=== PATIENT | male | born 1940 | race Caucasian/White ===

== ENCOUNTER 2020-03-21 16:59 | Inpatient (IN) | payer MEDICARE, OTHER ==
[~2020-03-21] VITALS: Ht 175.3 cm; Wt 86.3 kg
[2020-03-21] MEDS ORDERED: ONDANSETRON 4 MG/2 ML (SDV) Z0FRAN IV PRN (17:15)
[2020-03-21] MEDS ORDERED: ACETAMINOPHEN 325 MG TABLET PO PRN (17:15)
[2020-03-21] MEDS ORDERED: guaiFENesin/CODEINE (ROBITUSSIN AC) 10ML UDC PO PRN (17:15)
--- NOTE | 2020-03-21 18:40 | NUR ---
ALEXYS ESTRADA admitted to room 425-1, with an admitting diagnosis of COVID POSITIVE, on 03/21/20 from via [facility], accompanied by EMS STAFF FROM [facility].ALEXYS ESTRADA introduced to surroundings, call light, bed controls, phone, TV, temperature control, lights, meal times, smoking policy, visitor policy, side rail policy, bathrooms and showers. Patient Rights given to patient in the handbook. ALEXYS ESTRADA verbalizes understanding that [facility] is not responsible for the loss or damage to any personal effects or valuables that are kept in the patients posession during their hospitalization.
[2020-03-21 18:41] VITALS: BP 166/96
[2020-03-21] MEDS ORDERED: LACTATED RINGERS 1,000 ML IV ONE (19:57)
[2020-03-21] MEDS ORDERED: ENOXAPARIN 40 MG/0.4 ML (LOVENOX) SYR ONE (20:01)
[2020-03-21] MEDS: LACTATED RINGERS 1,000 ML IV SCH (20:30)
[2020-03-21 22:54] LABS: ABG BASE EXCESS 3.8 MMOL/L (-2.5-2.5); ABG OXYGEN SATURATION 95 % (94-100); ABG PCO2 37 MMHG (35-45); ABG PH 7.48 (7.37-7.43); ABG PO2 75 MMHG (79-93); ABG TCO2 28.6 MMOL/L (21.0-31.0); ALLENS TEST POSITIVE
[2020-03-21 22:55] LABS: INSPIRED O2 4.5; PATIENT TEMP 35.8; VENTILATOR NO
[2020-03-22] VITALS (9 sets, daily range): BP systolic 124–154; BP diastolic 69–95
[2020-03-22 05:06] LABS: HEMOGLOBIN 14.1 g/dL (13.3-17.7); MEAN PLATELET VOLUME 9.2 fL (9.0-12.2); WHITE BLOOD COUNT 12.5 10^3/uL (4.3-11.0)
[2020-03-22 05:22] LABS: ALBUMIN 3.2 GM/DL (3.2-4.5)
[2020-03-22 05:23] LABS: CHLORIDE 91 MMOL/L (98-107); POTASSIUM 3.1 MMOL/L (3.6-5.0); SODIUM 130 MMOL/L (135-145)
[2020-03-22 05:24] LABS: CALCIUM 8.4 MG/DL (8.5-10.1)
[2020-03-22 05:25] LABS: GLUCOSE 167 MG/DL (70-105); TOTAL PROTEIN 5.7 GM/DL (6.4-8.2)
[2020-03-22 05:26] LABS: CARBON DIOXIDE 27 MMOL/L (21-32)
[2020-03-22 05:27] LABS: BILIRUBIN,TOTAL 0.7 MG/DL (0.1-1.0)
[2020-03-22 05:28] LABS: ALKALINE PHOSPHATASE 58 U/L (40-136)
[2020-03-22 05:29] LABS: GFR ESTIMATED > 60
[2020-03-22 05:30] LABS: BUN/CREATININE RATIO 19
[2020-03-22 05:32] LABS: ALANINE AMINOTRANSFERASE 43 U/L (0-55)
[2020-03-22] MEDS: LACTATED RINGERS 1,000 ML IV SCH ×2 (06:22→09:23)
[2020-03-22] MEDS: ENOXAPARIN 40 MG/0.4 ML (LOVENOX) SYR SC SCH (06:22)
[2020-03-22] MEDS: REMDESIVIR INJ 100 MG in NS (IVPB) 230 ML IV SCH (09:05)
[2020-03-22] MEDS: dexAMETHasone 6 MG TAB (DECADRON) PO SCH (09:07)
[2020-03-22] MEDS ORDERED: BRIM5DRO OU (12:35)
[2020-03-22] MEDS ORDERED: NETA2.5D OU (12:35)
[2020-03-22] MEDS ORDERED: FINA5TAB6 PO (12:35)
[2020-03-22] MEDS ORDERED: LISI1TAB26 PO (12:35)
[2020-03-22] MEDS ORDERED: OMEP20TA33 PO (12:36)
--- NOTE | 2020-03-22 12:37 | NUR ---
I SPOKE WITH THE PATIENT ON THE ROOM PHONE AND WENT THROUGH THE EXTERNAL MED HISTORY TO COMPLETE THE MED REC. OTC: SHELDON
[2020-03-22] MEDS ORDERED: KCL 20 MEQ TAB (K-DUR) PO ONE (12:45)
[2020-03-22] MEDS ORDERED: hydrALAZINE (APRESOLINE) 25 MG TAB PO PRN (12:45)
--- NOTE | 2020-03-22 12:51 | History & Physical-Hospitalist ---
History of Present Illness HPI/Chief Complaint Renan Le is an 79-year-old male with past medical history of hypertension, BPH, GERD, glaucoma, who presented with shortness of breath. He presented to the [facility] ER in [place]. He had been diagnosed with COVID about 10 days prior. He reports that he has had a issues with sinuses for about 8 months and they suddenly cleared up. He reports that he then developed chest congestion. He reports having a cough. He denies ever having any fevers. He denies any chest pain. He denies any abdominal pain. He denies any nausea or vomiting. He denies any diarrhea. He has no other complaints or concerns. Source: patient Exam Limitations: no limitations Date Seen 03/22/20 Time Seen by a Provider: 10:25 Attending Physician Nay Stack MD PCP Alec Butcher DO Referring Physician Date of Admission Mar 21, 2020 at 18:40 Home Medications & Allergies Home Medications Reviewed patient Home Medication Reconciliation performed by pharmacy medication reconciliations machine technician and/or nursing. Patients Allergies have been reviewed. Allergies Allergies Coded Allergies No Known Drug Allergies (Nobtkowzpu56/22/20) Past Eojcbat-Beyaby-Dhuoep Hx Past Med/Social Hx: Reviewed Nursing Past Med/Soc Hx Patient Social History Recent Foreign Travel: No Contact w/other who traveled: No Recent Hopitalizations: No Recent Infectious Disease Expo: Yes (covid pos) Immunizations Up To Date Date of Pneumonia Vaccine: Jan 28, 2018 Date of Influenza Vaccine: Jan 29, 2020 Seasonal Allergies Seasonal Allergies: No Past Medical History Gastrointestinal: Gastroesophageal Reflux HEENT: Macular Degeneration, Glaucoma Hearing Impairment: Hard of Hearing History of Blood Disorders: No Family History Patient reports no known family medical history. Review of Systems Constitutional: malaise, weakness EENTM: no symptoms reported Respiratory: cough, short of breath Cardiovascular: no symptoms reported Gastrointestinal: no symptoms reported Genitourinary: no symptoms reported Musculoskeletal: no symptoms reported Skin: no symptoms reported Psychiatric/Neurological: No Symptoms Reported Physical Exam Physical Exam Vital Signs Vital Signs - First Documented 03/20/20 20:30 Pulse Ox 92 O2 Delivery Nasal Cannula O2 Flow Rate 5.00 Capillary Refill : Less Than 3 Seconds Height, Weight, BMI Height: '" Weight: lbs. oz. kg; 28.27 BMI Method: General Appearance: No Apparent Distress, WD/WN Neck: Normal Inspection, Supple Respiratory: Lungs Clear, Normal Breath Sounds, No Respiratory Distress Cardiovascular: Regular Rate, Rhythm, No Edema, No Murmur Gastrointestinal: Normal Bowel Sounds, Non Tender, Soft Extremity: Normal Inspection, Non Tender, No Pedal Edema Neurologic/Psychiatric: Alert, Oriented x3, No Motor/Sensory Deficits, Normal Mood/Affect Skin: Normal Color, Warm/Dry Results Results/Procedures Labs Laboratory Tests 03/22/20 04:24 Patient resulted labs reviewed. Imaging: Reviewed Imaging Report Assessment/Plan Admission Diagnosis acute respiratory failure due to COVID-19 Admission Status: Inpatient Order (span 2 midnights) Reason for Inpatient Admission: Requiring supplemental oxygen Assessment and Plan Acute respiratory failure due to COVID-19 COVID+ at outside facility reportedly 03/12 Requiring 4-5 L nasal cannula D-dimer normal, low likelihood of PE Procalcitonin normal, antibiotics not indicated Decadron Remdesivir Convalescent plasma ordered, agrees to EUA use, risks/benefits discussed Hyponatremia Hypokalemia Na 130, K 3.1 Continue IV fluids Replace potassium today Check magnesium Monitor and replace electrolytes as needed HTN BPH GERD Glaucoma Continue home meds DVT Prophylaxis: Lovenox Diagnosis/Problems Diagnosis/Problems (1) Acute respiratory failure due to COVID-19 Status: Acute (2) Hyponatremia Status: Acute (3) Hypokalemia Status: Acute (4) HTN (hypertension) Status: Chronic Qualifiers: Hypertension type: essential hypertension Qualified Codes: I10 - Essential (primary) hypertension (5) BPH (benign prostatic hyperplasia) Status: Chronic (6) GERD (gastroesophageal reflux disease) Status: Chronic (7) Glaucoma Status: Chronic (8) Overweight (BMI 25.0-29.9) Status: Chronic (9) 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
[2020-03-22] MEDS: POTASSIUM CL 10MEQ/50ML IVPB 50 ML IV SCH ×4 (13:39→15:41)
[2020-03-22] MEDS ORDERED: RT-ALBUTEROL INHALER HFA (VENTOLIN HFA) 18 GM IH SCH (18:00)
[2020-03-22] MEDS ORDERED: NETARSUDIL MESYLATE OU SCH (21:00)
[2020-03-22] MEDS ORDERED: NON-FORMULARY MEDICATION 1 EA EA (Brimonidine Tartrate/Timolol (Combigan Eye Drops) 1 DROP OU SCH (21:00)
[2020-03-22] MEDS: TIMOLOL MALEATE 0.5% 5 ML (TIMOPTIC) BTL OU SCH (21:13)
[2020-03-22] MEDS: BRIMONIDINE 0.2% (ALPHAGAN) OPHTH SOLN 5 ML BTL OU SCH (21:13)
[2020-03-22] MEDS: RT-ALBUTEROL INHALER HFA (VENTOLIN HFA) 18 GM IH SCH (22:48)
[2020-03-23 00:11] VITALS: BP 133/90
[2020-03-23] MEDS: LACTATED RINGERS 1,000 ML IV SCH ×2 (02:03→15:05)
[2020-03-23] MEDS: RT-ALBUTEROL INHALER HFA (VENTOLIN HFA) 18 GM IH SCH ×6 (02:11→21:55)
[2020-03-23 04:22] VITALS: BP 144/87
[2020-03-23 06:05] LABS: HEMOGLOBIN 13.6 g/dL (13.3-17.7); MEAN PLATELET VOLUME 9.2 fL (9.0-12.2); WHITE BLOOD COUNT 16.1 10^3/uL (4.3-11.0)
[2020-03-23 06:15] LABS: ALBUMIN 3.3 GM/DL (3.2-4.5)
[2020-03-23 06:16] LABS: CHLORIDE 95 MMOL/L (98-107); POTASSIUM 3.4 MMOL/L (3.6-5.0); SODIUM 134 MMOL/L (135-145)
[2020-03-23 06:17] LABS: CALCIUM 8.5 MG/DL (8.5-10.1)
[2020-03-23 06:18] LABS: GLUCOSE 127 MG/DL (70-105); TOTAL PROTEIN 5.7 GM/DL (6.4-8.2)
[2020-03-23 06:19] LABS: CARBON DIOXIDE 29 MMOL/L (21-32)
[2020-03-23 06:20] LABS: BILIRUBIN,TOTAL 0.8 MG/DL (0.1-1.0)
[2020-03-23 06:21] LABS: ALKALINE PHOSPHATASE 65 U/L (40-136)
[2020-03-23 06:22] LABS: CREATININE SERUM 0.88 MG/DL (0.60-1.30); GFR ESTIMATED > 60
[2020-03-23 06:23] LABS: BUN/CREATININE RATIO 19
[2020-03-23 06:24] LABS: ALANINE AMINOTRANSFERASE 56 U/L (0-55)
[2020-03-23 06:25] LABS: MAGNESIUM 1.9 MG/DL (1.6-2.4)
[2020-03-23] MEDS: POTASSIUM CL 10MEQ/50ML IVPB 50 ML IV SCH (06:53)
[2020-03-23] MEDS: KCL 20 MEQ TAB (K-DUR) PO SCH (06:54)
[2020-03-23] MEDS: MAGNESIUM 1 GM/100 ML IVPB 100 ML IV SCH (06:54)
[2020-03-23 08:00] VITALS: BP 150/78
[2020-03-23] MEDS: REMDESIVIR INJ 100 MG in NS (IVPB) 230 ML IV SCH (08:06)
[2020-03-23] MEDS: ENOXAPARIN 40 MG/0.4 ML (LOVENOX) SYR SC SCH (08:15)
[2020-03-23] MEDS: dexAMETHasone 6 MG TAB (DECADRON) PO SCH (08:16)
[2020-03-23] MEDS: FINASTERIDE (PROSCAR) 5 MG TAB PO SCH (08:17)
[2020-03-23] MEDS: TIMOLOL MALEATE 0.5% 5 ML (TIMOPTIC) BTL OU SCH ×2 (08:18→19:51)
[2020-03-23] MEDS: BRIMONIDINE 0.2% (ALPHAGAN) OPHTH SOLN 5 ML BTL OU SCH ×3 (08:18→19:51)
[2020-03-23] MEDS ORDERED: KCL 20 MEQ TAB (K-DUR) PO NR (09:00)
[2020-03-23 12:00] VITALS: BP 136/56
[2020-03-23] MEDS ORDERED: PANTOPRAZOLE 20 MG TABLET (PROTONIX) PO PRN (13:00)
--- NOTE | 2020-03-23 15:29 | Progress Note - Hospitalist ---
Subjective HPI/CC On Admission Date Seen by Provider: Mar 23, 2020 Time Seen by Provider: 11:05 Renan Le is an 79-year-old male with past medical history of hypertension, BPH, GERD, glaucoma, who presented with shortness of breath. He presented to the [facility] ER in [place]. He had been diagnosed with COVID about 10 days prior. He reports that he has had a issues with sinuses for about 8 months and they suddenly cleared up. He reports that he then developed chest congestion. He reports having a cough. He denies ever having any fevers. He denies any chest pain. He denies any abdominal pain. He denies any nausea or vomiting. He denies any diarrhea. He has no other complaints or concerns. Subjective/Events-last exam He history feeling better. He is still feeling short of breath. He is still having a bit of a cough. He denies any fevers. He has no other complaints or concerns. Objective Exam Vital Signs Vital Signs Date Time Temp Pulse Resp B/P (MAP) Pulse Ox O2 Delivery O2 Flow Rate FiO2 03/23/20 15:17 96 Nasal Cannula 2.00 03/23/20 12:23 81 03/23/20 12:00 35.8 22 136/56 (82) Capillary Refill : Less Than 3 Seconds General Appearance: No Apparent Distress, WD/WN Respiratory: Lungs Clear, Normal Breath Sounds, No Respiratory Distress Cardiovascular: Regular Rate, Rhythm, No Edema, No Murmur Gastrointestinal: Normal Bowel Sounds, Non Tender, Soft Extremity: Normal Inspection, Non Tender, No Pedal Edema Neurologic/Psychiatric: Alert, Oriented x3, No Motor/Sensory Deficits, Normal Mood/Affect Skin: Normal Color, Warm/Dry Results/Procedures Lab Laboratory Tests 03/23/20 05:15 Patient resulted labs reviewed. Imaging: Reviewed Imaging Report Assessment/Plan Assessment and Plan Assess & Plan/Chief Complaint Acute respiratory failure due to COVID-19 supplemental oxygen as needed, weaning as able Decadron Remdesivir s/p 1 unit convalescent plasma Hyponatremia Hypokalemia Improving Monitor and replace electrolytes as needed HTN BPH GERD Glaucoma Continue home meds DVT Prophylaxis: Lovenox Diagnosis/Problems Diagnosis/Problems (1) Acute respiratory failure due to COVID-19 Status: Acute (2) Hyponatremia Status: Acute (3) Hypokalemia Status: Acute (4) HTN (hypertension) Status: Chronic Qualifiers: Hypertension type: essential hypertension Qualified Codes: I10 - Essential (primary) hypertension (5) BPH (benign prostatic hyperplasia) Status: Chronic (6) GERD (gastroesophageal reflux disease) Status: Chronic (7) Glaucoma Status: Chronic (8) Overweight (BMI 25.0-29.9) Status: Chronic (9) 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
[2020-03-23 16:00] VITALS: BP 144/87
[2020-03-23 19:41] VITALS: BP 145/80
[2020-03-24] VITALS (7 sets, daily range): BP systolic 142–159; BP diastolic 73–94
[2020-03-24] MEDS: RT-ALBUTEROL INHALER HFA (VENTOLIN HFA) 18 GM IH SCH ×5 (01:19→21:56)
[2020-03-24 06:07] LABS: HEMOGLOBIN 14.2 g/dL (13.3-17.7); MEAN PLATELET VOLUME 8.7 fL (9.0-12.2); WHITE BLOOD COUNT 15.4 10^3/uL (4.3-11.0)
[2020-03-24 06:24] LABS: ALANINE AMINOTRANSFERASE 74 U/L (0-55); ALBUMIN 3.4 GM/DL (3.2-4.5); ALKALINE PHOSPHATASE 82 U/L (40-136); BILIRUBIN,TOTAL 0.9 MG/DL (0.1-1.0); BUN/CREATININE RATIO 19; CALCIUM 9.2 MG/DL (8.5-10.1); CARBON DIOXIDE 26 MMOL/L (21-32); CHLORIDE 97 MMOL/L (98-107); CREATININE SERUM 0.85 MG/DL (0.60-1.30); GFR ESTIMATED > 60; GLUCOSE 102 MG/DL (70-105); MAGNESIUM 1.8 MG/DL (1.6-2.4); POTASSIUM 3.9 MMOL/L (3.6-5.0); SODIUM 134 MMOL/L (135-145)
[2020-03-24] MEDS: MAGNESIUM 1 GM/100 ML IVPB 100 ML IV SCH (06:36)
[2020-03-24] MEDS: KCL 20 MEQ TAB (K-DUR) PO SCH (06:37)
[2020-03-24] MEDS: POTASSIUM CL 10MEQ/50ML IVPB 50 ML IV SCH (06:37)
[2020-03-24] MEDS: dexAMETHasone 6 MG TAB (DECADRON) PO SCH (08:31)
[2020-03-24] MEDS: ENOXAPARIN 40 MG/0.4 ML (LOVENOX) SYR SC SCH (08:31)
[2020-03-24] MEDS: REMDESIVIR INJ 100 MG in NS (IVPB) 230 ML IV SCH (08:31)
[2020-03-24] MEDS: TIMOLOL MALEATE 0.5% 5 ML (TIMOPTIC) BTL OU SCH ×2 (08:32→20:59)
[2020-03-24] MEDS: BRIMONIDINE 0.2% (ALPHAGAN) OPHTH SOLN 5 ML BTL OU SCH ×3 (08:32→20:59)
[2020-03-24] MEDS: FINASTERIDE (PROSCAR) 5 MG TAB PO SCH (08:32)
[2020-03-24] MEDS: RT-ALBUTEROL INHALER HFA (VENTOLIN HFA) 18 GM IH PRN ×2 (10:00→21:56)
--- NOTE | 2020-03-24 14:02 | Progress Note - Hospitalist ---
Subjective HPI/CC On Admission Date Seen by Provider: Mar 24, 2020 Time Seen by Provider: 10:25 Renan Le is an 79-year-old male with past medical history of hypertension, BPH, GERD, glaucoma, who presented with shortness of breath. He presented to the [facility] ER in [place]. He had been diagnosed with COVID about 10 days prior. He reports that he has had a issues with sinuses for about 8 months and they suddenly cleared up. He reports that he then developed chest congestion. He reports having a cough. He denies ever having any fevers. He denies any chest pain. He denies any abdominal pain. He denies any nausea or vomiting. He denies any diarrhea. He has no other complaints or concerns. Subjective/Events-last exam He is feeling a bit better today. He did not sleep well last night. He is not having any fevers. Objective Exam Vital Signs Vital Signs Date Time Temp Pulse Resp B/P (MAP) Pulse Ox O2 Delivery O2 Flow Rate FiO2 03/24/20 11:25 37.0 74 22 145/84 (104) 94 Nasal Cannula 2.00 Capillary Refill : Less Than 3 Seconds General Appearance: No Apparent Distress, WD/WN Respiratory: Lungs Clear, Normal Breath Sounds, No Respiratory Distress Cardiovascular: Regular Rate, Rhythm, No Edema, No Murmur Gastrointestinal: Normal Bowel Sounds, Non Tender, Soft Extremity: Normal Inspection, Non Tender, No Pedal Edema Neurologic/Psychiatric: Alert, Oriented x3, No Motor/Sensory Deficits, Normal Mood/Affect Skin: Normal Color, Warm/Dry Results/Procedures Lab Laboratory Tests 03/24/20 05:55 Patient resulted labs reviewed. Imaging: Reviewed Imaging Report Assessment/Plan Assessment and Plan Assess & Plan/Chief Complaint Acute respiratory failure due to COVID-19 supplemental oxygen as needed, weaning as able, currently down to 3 L Decadron Remdesivir day 4/5 s/p 1 unit convalescent plasma Hyponatremia Hypokalemia Improved Monitor and replace electrolytes as needed HTN BPH GERD Glaucoma Continue home meds DVT Prophylaxis: Lovenox Diagnosis/Problems Diagnosis/Problems (1) Acute respiratory failure due to COVID-19 Status: Acute (2) Hyponatremia Status: Acute (3) Hypokalemia Status: Acute (4) HTN (hypertension) Status: Chronic Qualifiers: Hypertension type: essential hypertension Qualified Codes: I10 - Essential (primary) hypertension (5) BPH (benign prostatic hyperplasia) Status: Chronic (6) GERD (gastroesophageal reflux disease) Status: Chronic (7) Glaucoma Status: Chronic (8) Overweight (BMI 25.0-29.9) Status: Chronic (9) 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
[2020-03-24] MEDS: MELATONIN 3 MG TABLET PO SCH (20:59)
[2020-03-25] MEDS: RT-ALBUTEROL INHALER HFA (VENTOLIN HFA) 18 GM IH SCH ×4 (02:35→15:30)
[2020-03-25] MEDS: RT-ALBUTEROL INHALER HFA (VENTOLIN HFA) 18 GM IH PRN ×4 (02:35→22:47)
[2020-03-25 03:40] VITALS: BP 147/87
[2020-03-25 04:57] LABS: HEMOGLOBIN 13.9 g/dL (13.3-17.7); MEAN PLATELET VOLUME 8.9 fL (9.0-12.2); WHITE BLOOD COUNT 12.9 10^3/uL (4.3-11.0)
[2020-03-25 05:32] LABS: ALBUMIN 3.3 GM/DL (3.2-4.5)
[2020-03-25 05:33] LABS: CHLORIDE 97 MMOL/L (98-107); POTASSIUM 4.2 MMOL/L (3.6-5.0); SODIUM 134 MMOL/L (135-145)
[2020-03-25 05:34] LABS: CALCIUM 8.7 MG/DL (8.5-10.1)
[2020-03-25 05:35] LABS: GLUCOSE 109 MG/DL (70-105); TOTAL PROTEIN 5.9 GM/DL (6.4-8.2)
[2020-03-25 05:36] LABS: CARBON DIOXIDE 24 MMOL/L (21-32)
[2020-03-25 05:37] LABS: BILIRUBIN,TOTAL 0.9 MG/DL (0.1-1.0)
[2020-03-25 05:39] LABS: ALKALINE PHOSPHATASE 86 U/L (40-136); CREATININE SERUM 0.86 MG/DL (0.60-1.30); GFR ESTIMATED > 60
[2020-03-25] MEDS: KCL 20 MEQ TAB (K-DUR) PO SCH (05:39)
[2020-03-25] MEDS: POTASSIUM CL 10MEQ/50ML IVPB 50 ML IV SCH (05:39)
[2020-03-25 05:40] LABS: BUN/CREATININE RATIO 19
[2020-03-25 05:42] LABS: ALANINE AMINOTRANSFERASE 78 U/L (0-55)
[2020-03-25] MEDS: MAGNESIUM 1 GM/100 ML IVPB 100 ML IV SCH (06:51)
[2020-03-25 08:00] VITALS: BP 144/87
[2020-03-25] MEDS: TIMOLOL MALEATE 0.5% 5 ML (TIMOPTIC) BTL OU SCH ×2 (09:20→19:38)
[2020-03-25] MEDS: FINASTERIDE (PROSCAR) 5 MG TAB PO SCH (09:20)
[2020-03-25] MEDS: BRIMONIDINE 0.2% (ALPHAGAN) OPHTH SOLN 5 ML BTL OU SCH ×3 (09:20→19:38)
[2020-03-25] MEDS: ENOXAPARIN 40 MG/0.4 ML (LOVENOX) SYR SC SCH (09:21)
[2020-03-25] MEDS: REMDESIVIR INJ 100 MG in NS (IVPB) 230 ML IV SCH (09:21)
[2020-03-25] MEDS: dexAMETHasone 6 MG TAB (DECADRON) PO SCH (09:21)
[2020-03-25] MEDS ORDERED: polyethylene glycoL POWDER 17 GM (MIRALAX) PACK PO PRN (11:00)
[2020-03-25] MEDS: SENNA W/DOCUSATE (SENOKOT S) TABLET PO SCH ×2 (12:00→19:38)
--- NOTE | 2020-03-25 12:30 | NUR ---
patient needs 4L oxygen continuously Addendum: 03/25/20 at 1231 by CÉSAR CR RT Amended: Links added.
--- NOTE | 2020-03-25 12:57 | Progress Note - Hospitalist ---
Subjective HPI/CC On Admission Date Seen by Provider: Mar 25, 2020 Time Seen by Provider: 10:55 Renan Le is an 79-year-old male with past medical history of hypertension, BPH, GERD, glaucoma, who presented with shortness of breath. He presented to the [facility] ER in [place]. He had been diagnosed with COVID about 10 days prior. He reports that he has had a issues with sinuses for about 8 months and they suddenly cleared up. He reports that he then developed chest congestion. He reports having a cough. He denies ever having any fevers. He denies any chest pain. He denies any abdominal pain. He denies any nausea or vomiting. He denies any diarrhea. He has no other complaints or concerns. Subjective/Events-last exam He slept better last night. He needs medication for constipation. He denies any fevers. He has no other complaints. Objective Exam Vital Signs Vital Signs Date Time Temp Pulse Resp B/P (MAP) Pulse Ox O2 Delivery O2 Flow Rate FiO2 03/25/20 11:35 95 4.00 03/25/20 09:04 Nasal Cannula 03/25/20 08:00 36.9 85 18 144/87 (106) Capillary Refill : Less Than 3 Seconds General Appearance: No Apparent Distress, WD/WN Respiratory: Lungs Clear, Normal Breath Sounds, No Respiratory Distress Cardiovascular: Regular Rate, Rhythm, No Edema, No Murmur Gastrointestinal: Normal Bowel Sounds, Non Tender, Soft Extremity: Normal Inspection, Non Tender, No Pedal Edema Neurologic/Psychiatric: Alert, Oriented x3, No Motor/Sensory Deficits, Normal Mood/Affect Skin: Normal Color, Warm/Dry Results/Procedures Lab Laboratory Tests 03/25/20 04:22 Patient resulted labs reviewed. Imaging: Reviewed Imaging Report Assessment/Plan Assessment and Plan Assess & Plan/Chief Complaint Acute respiratory failure due to COVID-19 supplemental oxygen as needed Decadron Remdesivir day 5/5 s/p 1 unit convalescent plasma Hyponatremia Improved HTN BPH GERD Glaucoma Continue home meds DVT Prophylaxis: Lovenox Hypokalemia, resolved Diagnosis/Problems Diagnosis/Problems (1) Acute respiratory failure due to COVID-19 Status: Acute (2) Hyponatremia Status: Acute (3) Hypokalemia Status: Resolved Resolution Date/Time: 03/25/20 @ 12:58 (4) HTN (hypertension) Status: Chronic Qualifiers: Hypertension type: essential hypertension Qualified Codes: I10 - Essential (primary) hypertension (5) BPH (benign prostatic hyperplasia) Status: Chronic (6) GERD (gastroesophageal reflux disease) Status: Chronic (7) Glaucoma Status: Chronic (8) Overweight (BMI 25.0-29.9) Status: Chronic (9) 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
[2020-03-25 16:21] VITALS: BP 164/83
[2020-03-25] MEDS: DOCUSATE SODIUM 100 MG (COLACE) CAP PO SCH (19:38)
[2020-03-25] MEDS: MELATONIN 3 MG TABLET PO SCH (19:38)
[2020-03-25 23:48] VITALS: BP 149/86
[2020-03-26] MEDS: RT-ALBUTEROL INHALER HFA (VENTOLIN HFA) 18 GM IH PRN ×2 (02:26→10:39)
[2020-03-26 06:17] LABS: ALBUMIN 3.1 GM/DL (3.2-4.5); CHLORIDE 96 MMOL/L (98-107); SODIUM 133 MMOL/L (135-145)
[2020-03-26 06:18] LABS: CALCIUM 8.7 MG/DL (8.5-10.1)
[2020-03-26] MEDS: POTASSIUM CL 10MEQ/50ML IVPB 50 ML IV SCH (06:18)
[2020-03-26] MEDS: KCL 20 MEQ TAB (K-DUR) PO SCH (06:18)
[2020-03-26 06:19] LABS: GLUCOSE 139 MG/DL (70-105); TOTAL PROTEIN 5.8 GM/DL (6.4-8.2)
[2020-03-26 06:20] LABS: CARBON DIOXIDE 27 MMOL/L (21-32)
[2020-03-26 06:21] LABS: BILIRUBIN,TOTAL 0.8 MG/DL (0.1-1.0)
[2020-03-26 06:23] LABS: ALKALINE PHOSPHATASE 83 U/L (40-136); CREATININE SERUM 0.86 MG/DL (0.60-1.30); GFR ESTIMATED > 60
[2020-03-26 06:24] LABS: BUN/CREATININE RATIO 21
[2020-03-26 06:26] LABS: ALANINE AMINOTRANSFERASE 79 U/L (0-55)
[2020-03-26] MEDS: MAGNESIUM 1 GM/100 ML IVPB 100 ML IV SCH (06:27)
[2020-03-26] MEDS: RT-ALBUTEROL INHALER HFA (VENTOLIN HFA) 18 GM IH SCH ×2 (06:58→10:40)
[2020-03-26 08:37] VITALS: BP 117/73
[2020-03-26] MEDS: BRIMONIDINE 0.2% (ALPHAGAN) OPHTH SOLN 5 ML BTL OU SCH (08:42)
[2020-03-26] MEDS: TIMOLOL MALEATE 0.5% 5 ML (TIMOPTIC) BTL OU SCH (08:42)
[2020-03-26] MEDS: DOCUSATE SODIUM 100 MG (COLACE) CAP PO SCH (08:42)
[2020-03-26] MEDS: ENOXAPARIN 40 MG/0.4 ML (LOVENOX) SYR SC SCH (08:42)
[2020-03-26] MEDS: FINASTERIDE (PROSCAR) 5 MG TAB PO SCH (08:42)
[2020-03-26] MEDS: SENNA W/DOCUSATE (SENOKOT S) TABLET PO SCH (08:42)
[2020-03-26] MEDS: dexAMETHasone 6 MG TAB (DECADRON) PO SCH (08:42)
--- NOTE | 2020-03-26 10:34 | NUR ---
"RD ASSESSMENT PMHx: HTN; GERD; BPH; PT INTERACTION: Note pt is currently in COVID isolation, per chart review. Note all diet information for nutrition assessment for LOS is per Adair RN, or per chart review. Adair states current appetite appears good. Note avg PO intake 80% x4d, per chart review. Adair states some issues with constipation. Note last BM was 03/25, and pt currently on bowel regimen of colace BID, and senna BID, per chart review. Note unable to determine recent wt hx, per chart review. ABNORMAL NUTRITION-RELATED LAB VALUES LOW: Na 133; Cl 96; Pro 5.8; alb 3.1; HIGH: glu 139; AST 50; ALT 79; Est. kcal needs: 0932-6850 kcal | 20-25 kcal/kg Est. Pro needs: 86-104 g Pro | 1.0-1.2 g Pro/kg PES STATEMENT: Given current appetite and PO intake, no nutrition diagnosis at this time (NO-1.1). INTERVENTION: Continue with current diet order of Regular diet. Would recommend more aggressive bowel regimen if constipation persists. Will continue to follow and reassess as pt needs, intake, and status change. Carlota Frankel, MS RD LD [phone] cell"
--- NOTE | 2020-03-26 11:35 | Physical Therapy Evaluation ---
PT Evaluation-General Medical Diagnosis Admission Date Mar 21, 2020 at 18:40 Medical Diagnosis: ARF, covid 19 Onset Date: Mar 21, 2020 Therapy Diagnosis Therapy Diagnosis: impaired balance Precautions Precautions/Isolations: Contact Isolation, Droplet Isolation Referral Physician: Too Reason for Referral: Evaluation/Treatment Medical History Additional Medical History Past Medical History Gastrointestinal: Gastroesophageal Reflux HEENT: Macular Degeneration, Glaucoma Hearing Impairment: Hard of Hearing Reviewed History: Yes Social History Home: Single Level Current Living Status: Spouse Entry Into Home: Level Entry Prior Prior Level of Function SCALE: Activities may be completed with or without assistive devices. 0-Fkjlbhbvxb-lgfswhm completes the activity by him/herself with no assistance from a helper. 5-Set-up or Clean-up Assistance-helper sets up or cleans up; patient completes activity. Justice assists only prior to or following the activity. 4-Supervision or Touching Assistance-helper provides verbal cues and/or touching/steadying and/or contact guard assistance as patient completes activity. Assistance may be provided throughout the activity or intermittently. 3-Partial/Moderate Assistance-helper does LESS THAN HALF the effort. Justice lifts, holds or supports trunk or limbs, but provides less than half the effort. 2-Substantial/Maximal Assistance-helper does MORE THAN HALF the effort. Justice lifts or holds trunk or limbs and provides more than half the effort. 5-Kvagqmesh-srwrfp does ALL the effort. Patient does none of the effort to complete the activity. Or, the assistance of 2 or more helpers is required for the patient to complete the activity. If activity was not attempted, code reason: 7-Patient Refused. 9-Not Applicable-not attempted and the patient did not perform the activity be fore the current illness, exacerbation or injury. 10-Not Attempted due to Environmental Limitations-(lack of equipment, weather restraints, etc.). 88-Not Attempted due to Medical Conditions or Safety Concerns. Bed Mobility: 6 Transfers (B,C,W/C): 6 Gait: 6 Stairs: 6 Indoor Mobility (Ambulation): Independent Stairs: Independent PT Evaluation-Current Subjective Patient in bed pre tx, agrees to PT, has no complaints of pain. Patient states he has been ambulating to the restroom many times on his own without difficulty. Pt/Family Goals "to go home" Objective Patient Orientation: Person, Place, Situation Attachments: Oxygen ROM/Strength ROM Lower Extremities WNL Strength Lower Extremities LLE 4+/5 gross, RLE 5/5 gross Sensory Hearing: Impaired Sensation Right Lower Extremit: Intact Sensation Left Lower Extremity: Intact Transfers Roll Left to Right (QC): 6 Lying to Sitting/Side of Bed(Q: 6 Sit to Stand (QC): 6 Chair/Ydh-sn-Krloi Xfer(QC): 6 Gait Does the Patient Walk?: Yes Mode of Locomotion: Walk Anticipated Mode of Locomotion: Walk Walk 10 feet (QC): 6 Distance: 20' Gait Assistive Device: None Comments/Gait Description Patient ambulated from the bedside toward the window to the other side to the doorway and then back to a recliner. Patient ambulated without difficulty, was able to keep track of his O2 line, no AD. Patient was able to perform 5 heel raises without UE support, a little unstable but no LOB, did 5 mini-squats without UE support without difficulty, no SOB with ambulation. Patient in recliner post tx with nurse call, phone, tray, all needs met. Balance Sitting Static: Normal Sitting Dynamic: Normal Standing Static: Normal Standing Dynamic: Good Assessment/Needs Patient has a slight balance impairment with dynamic activity but probably not far from average for his age range. Rehab Potential: Good PT Plan Treatment/Plan Treatment Plan: Discontinue PT Treatment Duration: Mar 26, 2020 Frequency: Patient and/or Family Agrees t: Yes Safety Risks/Education Patient Education: Gait Training, Transfer Techniques, Correct Positioning, Safety Issues Teaching Recipient: Patient Teaching Methods: Demonstration, Discussion Response to Teaching: Verbalize Understanding Discharge Recommendations Plan DC Therapy Discharge Recommendati: Home & Family Time/GCodes Time In: 1055 Time Out: 1105 Total Billed Treatment Time: 10 Total Billed Treatment 1 visit EVBRIGETTE FREREIRA PT Mar 26, 2020 11:35
--- NOTE | 2020-03-26 11:46 | Occupational Therapy Eval ---
OT Evaluation-General/PLF Medical Diagnosis Admission Date Mar 21, 2020 at 18:40 Medical Diagnosis: ARF, covid 19 Onset Date: Mar 21, 2020 Therapy Diagnosis Therapy Diagnosis: Decreased ADL status Precautions Precautions/Isolations: Contact Isolation, Droplet Isolation Referral Physician: Too Referral Reason: Activity Tolerance, Self Care, Evaluation/Treatment, Strengthening/ROM Medical History Current History COVID + Reviewed History: Yes Social History Home: Multilevel (only uses 1st level, is moving soon.) Current Living Status: Spouse Entry Into Home: Level Entry ADL-Prior Level of Function SCALE: Activities may be completed with or without assistive devices. 9-Yminpjowxo-hxkiarq completes the activity by him/herself with no assistance from a helper. 5-Set-up or Clean-up Assistance-helper sets up or cleans up; patient completes activity. [place] assists only prior to or following the activity. 4-Supervision or Touching Assistance-helper provides verbal cues and/or touching/steadying and/or contact guard assistance as patient completes activity. Assistance may be provided throughout the activity or intermittently. 3-Partial/Moderate Assistance-helper does LESS THAN HALF the effort. [place] lifts, holds or supports trunk or limbs, but provides less than half the effort. 2-Substantial/Maximal Assistance-helper does MORE THAN HALF the effort. [place] lifts or holds trunk or limbs and provides more than half the effort. 0-Bkwtcjbto-ttphkr does ALL the effort. Patient does none of the effort to complete the activity. Or, the assistance of 2 or more helpers is required for the patient to complete the activity. If activity was not attempted, code reason: 7-Patient Refused. 9-Not Applicable-not attempted and the patient did not perform the activity befo re the current illness, exacerbation or injury. 10-Not Attempted due to Environmental Limitations-(lack of equipment, weather re straints, etc.). 88-Not Attempted due to Medical Conditions or Safety Concerns. ADL PLOF Comments IND without use of AD Self Care: Independent Functional Cognition: Independent DME/Equipment: Grab Bars, Tub/Shower Occupation: retired Drive Self: Yes OT Current Status Subjective Pt's nurse states pt is weak, has not had pt out of bed. Upon entry, pt alert/ oriented. Pt agrees to tx. Pt denies pain, on 2L 02 Mental Status/Objective Patient Orientation: Person, Place, Situation, Normal For Age Attachments: Oxygen Current Glasses/Contacts: Yes Hearing Aids: Yes Dentures/Partials: No Hand Dominance: Right Upper Extremity ROM WFL BUE Upper Extremity Coordination WFL BUE Upper Extremity Sensation WFL BUE Upper Extremity Strength WFL BUE Other Treatments Pt supine. Supine to sit SBA, completes ROM/ MMT EOB with good ability. States has been taking self to bathroom without AD with IND. No issues with dressing/ toileting. sit to stand SBA. Completes multiple balance tasks with SBA/ no LOB. Pt ambulates around room, no LOB, no SOB. Pt sits in recliner, educated on continued sit in recliner and benefits of upright positioning. Pt does not need skilled OT at this time. Pt states desire to d/c home. Functionally, pt at PLOF with ADLs. D/c OT. Pt left in recliner with all needs met, call light in reach. Education OT Patient Education: Correct positioning, Progress toward Goal/Update tx plan, Safety issues Teaching Recipient: Patient Teaching Methods: Demonstration, Discussion Response to Teaching: Verbalize Understanding, Return Demonstration OT Magazine Hand Goals Magazine Hand Goals 1=Demonstrate adherence to instructed precautions during ADL tasks. 2=Patient will verbalize/demonstrate understanding of assistive devices/modifications for ADL. 3=Patient will improve strength/tolerance for activity to enable patient to perform ADL's. OT Education/Plan Problem List/Assessment Assessment: No Skilled OT Needs ID'd Discharge Recommendations Plan/Recommendations: Discharge/Goals Met Therapy Discharge Recommendati: Home & Family Treatment Plan/Plan of Care Treatment,Training & Education: Yes Patient would benefit from OT for education, treatment and training to promote independence in ADL's, mobility, safety and/or upper extremity function for ADL's. Plan of Care: OTHER (eval and d/c. ) Treatment Duration: Mar 26, 2020 Frequency: 1 time per week (eval only) Rehab Potential: Good Time/GCodes Start Time: 10:55 Stop Time: 11:05 Total Time Billed (hr/min): 15 Billed Treatment Time 1, EVL (15) d/c. XAVIER PAZ OTR Mar 26, 2020 11:46
--- NOTE | 2020-03-26 12:19 | NUR ---
CM/ANTOINE visited with patient for discharge planning. Plan: Patient will discharge home today 03/26 with home oxygen. 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 DME: The patient stated he was having a hard time hearing this sw and wanted for his Kirsty to be called and her to make the decision. A choice list was provided. She chose [facility] in [place]. CM/ANTOINE contacted [facility], they will deliver within the next 2 hours. DREW/SS faxed script, home o2 study, h&p, and face sheet. DREW/SS contacted the patient's Kirsty and informed her of o2 delivery time. She verbalized understanding and stated she will be here around 2:00. Addendum: 03/26/20 at 1223 by JES WALKER Qualified for 4L continuous. The patient did well with physical therapy and physician did not feel he needed home health at this time.
--- NOTE | 2020-03-26 15:10 | Discharge Summary ---
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 He was treated with Decadron, Remdesivir, and convalescent plasma. He improved symptomatically. He continued to require oxygen at the time of discharge and was set up with 4 L continuously. He should follow up with his PCP in a week or two. He was discharged home in stable condition. Labs and Pending Lab Test: Laboratory Tests 03/26/20 05:58: Sodium Level 133L, Potassium Level 4.0, Chloride Level 96L, Carbon Dioxide Level 27, Anion Gap 10, Blood Urea Nitrogen 18, Creatinine 0.86, Estimat Glomerular Filtration Rate > 60, BUN/Creatinine Ratio 21, Glucose Level 139H, Calcium Level 8.7, Corrected Calcium 9.4, Magnesium Level 2.0, Total Bilirubin 0.8, Aspartate Amino Transf (AST/SGOT) 50H, Alanine Aminotransferase (ALT/SGPT) 79H, Alkaline Phosphatase 83, Total Protein 5.8L, Albumin 3.1L Home Meds Active Reported Prilosec Otc (Omeprazole Magnesium) 20 Mg Tablet.dr 20 Mg PO DAILY PRN Finasteride 5 Mg Tablet 5 Mg PO DAILY Lisinopril-Hctz 20-25 mg Tab (Lisinopril/Hydrochlorothiazide) 1 Each Tablet 0.5 Each PO DAILY TAKES 1/2 (20-25MG) TABLET Rhopressa (Netarsudil Mesylate) 2.5 Ml Drops 1 Drop OU HS Combigan Eye Drops (Brimonidine Tartrate/Timolol) 5 Ml Drops 1 Drop OU BID Assessment/Pt Instructions Take medications as prescribed. You have been set up with home oxygen 4 L continuously. Follow up with your PCP. Discharge Planning: <30 minutes discharge planning Discharge Instructions Discharge Diet: No Restrictions Activity as Tolerated: Yes Discharge Physical Examination Vital Signs Vital Signs Date Time Temp Pulse Resp B/P (MAP) Pulse Ox O2 Delivery O2 Flow Rate FiO2 03/26/20 14:52 03/26/20 12:18 72 03/26/20 10:40 97 Nasal Cannula 3.50 03/26/20 08:37 36.2 20 General Appearance: No Apparent Distress, WD/WN Respiratory: Lungs Clear, Normal Breath Sounds, No Respiratory Distress Cardiovascular: Regular Rate, Rhythm, No Edema, No Murmur Gastrointestinal: Normal Bowel Sounds, Non Tender, Soft Extremity: Normal Inspection, Non Tender, No Pedal Edema Skin: Normal Color, Warm/Dry Neurologic/Psychiatric: Alert, Oriented x3, No Motor/Sensory Deficits, Normal Mood/Affect Allergies: Coded Allergies: No Known Drug Allergies (Unverified , 03/21/20) Discharge Summary Date of Admission Mar 21, 2020 at 18:40 Date of Discharge Discharge Date: Mar 26, 2020 Discharge Time: 15:08 Admission Diagnosis acute respiratory failure due to COVID-19 Discharge Diagnosis Acute respiratory failure due to COVID-19 (1) Acute respiratory failure due to COVID-19 Status: Acute (2) Hyponatremia Status: Acute (3) Hypokalemia Status: Resolved (4) HTN (hypertension) Status: Chronic Qualifiers: Qualified Codes: I10 - Essential (primary) hypertension (5) BPH (benign prostatic hyperplasia) Status: Chronic (6) GERD (gastroesophageal reflux disease) Status: Chronic (7) Glaucoma Status: Chronic (8) Overweight (BMI 25.0-29.9) Status: Chronic (9) 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
== END 2020-03-26 14:20 | disposition home or self-care (01) | DRG 177 ==
LOC: 4TH 18:40
PROVIDERS: ADMIT Family Medicine; ATTEND Internal Medicine
PROC: XW033E5 Introduction of Remdesivir Anti-infective into Peripheral Vein, Percutaneous Approach, New Technology Group 5 (ICD-10-PCS; principal; 2020-03-21)
PROC: XW13325 Transfusion of Convalescent Plasma (Nonautologous) into Peripheral Vein, Percutaneous Approach, New Technology Group 5 (ICD-10-PCS; 2020-03-22)
DX: U07.1 COVID-19 (principal); J96.00 Acute respiratory failure, unspecified whether with hypoxia or hypercapnia; E87.1 Hypo-osmolality and hyponatremia; Z87.891 Personal history of nicotine dependence; I10 Essential (primary) hypertension; N40.0 Benign prostatic hyperplasia without lower urinary tract symptoms; K21.9 Gastro-esophageal reflux disease without esophagitis; H40.9 Unspecified glaucoma; H35.30 Unspecified macular degeneration; H91.90 Unspecified hearing loss, unspecified ear; E87.6 Hypokalemia; E66.3 Overweight; Z68.25 Body mass index [BMI] 25.0-25.9, adult
CPT/HCPCS: 36415; 80053; 82728; 82805; 83615; 83735; 84145; 84484; 85027; 85379; 86900; 86901; 94640; 94664; 94760; 94761